=== PATIENT | male | born 2005 | race American Indian/Alaskan Native ===

== ENCOUNTER 2024-04-01 12:43 | Emergency (ER) | payer OTHER | END 2024-04-01 14:22 | disposition home or self-care (01) | LOC: DL.ED 12:43 | DX: S66.991A Other injury of unspecified muscle, fascia and tendon at wrist and hand level, right hand, initial encounter (principal); X50.9XXA Other and unspecified overexertion or strenuous movements or postures, initial encounter | CPT/HCPCS: 73140-F5; 99282; 99283 ==